=== PATIENT | male | born 1970 | race Caucasian/White ===

== ENCOUNTER 2016-06-09 08:52 | Emergency (ER) | payer OTHER ==
--- NOTE | 2016-06-09 10:00 | ED CLINICAL REPORT ---
Clinical Report - Physicians/Mid Levels [facility] [address] [place] [address] 06/09/2016 8:53 Patient: JERSON DAVIS Time Seen: 09:16; initial patient contact. Arrived- By private vehicle. Historian- patient. HISTORY OF PRESENT ILLNESS Chief Complaint: "FLU". This started yesterday and is still present (persistent). It was gradual in onset. The patient has had a cough, sinus drainage, nasal congestion, fever and chills. He has had muscle aches, a nasal discharge and diarrhea. No skin rash, difficulty breathing, chest discomfort or chest pain or nausea. No vomiting, loss of appetite or sputum production. The patient has had contact with a sick individual. Similar symptoms previously: None. Recent medical care: Not recently seen/assessed. REVIEW OF SYSTEMS No sinus pain, weakness or dizziness. All systems otherwise negative, except as recorded above. PAST HISTORY Leukocytosis. Cellulitis. Substance Abuse. Hypertension. Balanitis. Herpes Genitalis. SURGERIES: Cholecystectomy. SOCIAL HISTORY Former smoker, end date 2006. No alcohol use or drug use. ADDITIONAL NOTES The nursing notes have been reviewed with agreement regarding the chief complaint, PMH and patient medications and allergies. PHYSICAL EXAM Vital Signs: 06/09/2016 09:05 BP: 149/73. HR: 81. RR: 20. O2 saturation: 99%. Temp: 99.6 F. Pain level now: 5/10. Have been reviewed. Hypertensive. Heart rate normal. Respiratory rate normal. Temperature normal. Oxygen saturation normal. Appearance: Alert. No acute distress. Eyes: Eyes normal inspection. ENT: Ears normal. Nose normal. Mild generalized pharyngeal erythema. Neck: No lymphadenopathy. CVS: Normal heart rate and rhythm. Heart sounds normal. Respiratory: No respiratory distress. Breath sounds normal. Skin: Normal skin color. No rash. Neuro: Oriented X 3. LABS, X-RAYS, AND EKG Laboratory Tests: Rapid Influenza Screen: (RAVINDER: 06/09/2016 09:20) ( MsgRcvd 06/09/2016 09:49) Final results SPECIMEN DESCRIPTION: ... Test Result Flag Units (Reference) RAPID INFLUENZA SCREEN DATE: 06/09/16 INFLUENZA A: NEGATIVE SCREEN FOR INFLUENZA A INFLUENZA B: NEGATIVE SCREEN FOR INFLUENZA B . PROGRESS AND PROCEDURES Disposition: Discharged home in good condition. Condition: good. CLINICAL IMPRESSION Acute viral rhinitis. INSTRUCTIONS Alternate Tylenol (Acetaminophen) or Motrin (Ibuprofen) for fever. Take according to label instructions. Do not work today. Drink plenty of fluids. Your Current Medications: CONTINUE TAKING THE FOLLOWING MEDICATIONS: B/P med (carditon??)*. Lisinopril Oral : 5 mg daily. Follow-up: Follow up with your doctor in about two days if not better. Call for an appointment. Blood pressure screening was not performed during this visit because the patient has an active diagnosis of hypertension. The patient should follow up with a primary care provider for blood pressure management. (Electronically signed by Tyrese Franklin Dr. 06/09/2016 10:03)
--- NOTE | 2016-06-09 10:00 | ED CLINICAL REPORT ---
Clinical Report - Physicians/Mid Levels [facility] [address] [place] [address] 06/09/2016 8:53 Patient: JERSON DAVIS Time Seen: 09:16; initial patient contact. Arrived- By private vehicle. Historian- patient. HISTORY OF PRESENT ILLNESS Chief Complaint: "FLU". This started yesterday and is still present (persistent). It was gradual in onset. The patient has had a cough, sinus drainage, nasal congestion, fever and chills. He has had muscle aches, a nasal discharge and diarrhea. No skin rash, difficulty breathing, chest discomfort or chest pain or nausea. No vomiting, loss of appetite or sputum production. The patient has had contact with a sick individual. Similar symptoms previously: None. Recent medical care: Not recently seen/assessed. REVIEW OF SYSTEMS No sinus pain, weakness or dizziness. All systems otherwise negative, except as recorded above. PAST HISTORY Leukocytosis. Cellulitis. Substance Abuse. Hypertension. Balanitis. Herpes Genitalis. SURGERIES: Cholecystectomy. SOCIAL HISTORY Former smoker, end date 2006. No alcohol use or drug use. ADDITIONAL NOTES The nursing notes have been reviewed with agreement regarding the chief complaint, PMH and patient medications and allergies. PHYSICAL EXAM Vital Signs: 06/09/2016 09:05 BP: 149/73. HR: 81. RR: 20. O2 saturation: 99%. Temp: 99.6 F. Pain level now: 5/10. Have been reviewed. Hypertensive. Heart rate normal. Respiratory rate normal. Temperature normal. Oxygen saturation normal. Appearance: Alert. No acute distress. Eyes: Eyes normal inspection. ENT: Ears normal. Nose normal. Mild generalized pharyngeal erythema. Neck: No lymphadenopathy. CVS: Normal heart rate and rhythm. Heart sounds normal. Respiratory: No respiratory distress. Breath sounds normal. Skin: Normal skin color. No rash. Neuro: Oriented X 3. LABS, X-RAYS, AND EKG Laboratory Tests: Rapid Influenza Screen: (RAVINDER: 06/09/2016 09:20) ( MsgRcvd 06/09/2016 09:49) Final results SPECIMEN DESCRIPTION: ... Test Result Flag Units (Reference) RAPID INFLUENZA SCREEN DATE: 06/09/16 INFLUENZA A: NEGATIVE SCREEN FOR INFLUENZA A INFLUENZA B: NEGATIVE SCREEN FOR INFLUENZA B . PROGRESS AND PROCEDURES Disposition: Discharged home in good condition. Condition: good. CLINICAL IMPRESSION Acute viral rhinitis. INSTRUCTIONS Alternate Tylenol (Acetaminophen) or Motrin (Ibuprofen) for fever. Take according to label instructions. Do not work today. Drink plenty of fluids. Your Current Medications: CONTINUE TAKING THE FOLLOWING MEDICATIONS: B/P med (carditon??)*. Lisinopril Oral : 5 mg daily. Follow-up: Follow up with your doctor in about two days if not better. Call for an appointment. Blood pressure screening was not performed during this visit because the patient has an active diagnosis of hypertension. The patient should follow up with a primary care provider for blood pressure management. (Electronically signed by Tyrese Franklin Dr. 06/09/2016 10:03)
--- NOTE | 2016-06-09 10:01 | ED NURSING NOTES ---
Clinical Report - Nurses [facility] [place] [address] 06/09/2016 8:53 Patient: JERSON DAVIS TRIAGE Triage time 09:05. Acuity: LEVEL 4. Chief Complaint: "FLU", FEVER, COUGH and BODY ACHES and (productive yellow cough). 09:10 06/09/16. SEPSIS SCREEN: Sepsis Screen. Negative (no infection suspected/documented). MELVIN COMA SCORE: Melvin Coma Scale: 15- eyes open spontaneously (4); best verbal response- oriented x 4 (5); best motor response- obeys commands (6). --09:10 River Parker R.N. 09:05 06/09/16. BP: 149/73. HR: 81. RR: 20. O2 saturation: 99% on room air. Temp: 99.6 F (oral). Pain level now: 510. --09:10 River Parker R.N. Weight: 96.1 kg stated. Height/Length: 69 inches Per Patient. BMI: 31.3. --09:06 River Parker R.N. Medications Lisinopril Oral 5 mg, daily. --09:08 River Parker R.N. B/P med ([facility]??). --09:09 River Parker R.N. Allergies No Known Drug Allergy. --09:07 River Parker R.N. History Arrived by private vehicle. Historian: patient. This started yesterday. Treatment PCT: (Nyquil last night). SOCIAL HX: Former smoker, end date 2006. No alcohol use or drug use. No recent travel. He has had contact with a sick family member. ABUSE ASSESSMENT: No report of abuse. --09:10 River Parker R.N. PROBLEMS: Leukocytosis. Cellulitis. Substance Abuse. Hypertension. Balanitis. Herpes Genitalis. --09:08 River Parker R.N. ADDITIONAL SURGERIES: Cholecystectomy. --09:08 River Parker R.N. Interventions ID band on patient. To treatment room. --09:10 River Parker R.N. PHYSICAL ASSESSMENT 09:13 06/09/16. Ambulatory to room. GENERAL / NEURO / PSYCH: Alert. Oriented X 4. Appears in no acute distress. HEENT: Pupils equal, round and reactive to light. Mucous membranes are pink. RESPIRATORY: Respirations not labored. Chest nontender. Breath sounds within normal limits. CVS: Capillary refill less than 2 seconds. Pulses within normal limits. GI / : The patient has had nausea. Abdomen soft and nontender and normal bowel sounds. SKIN: Skin is warm and dry. Normal skin turgor. --09:13 River Parker R.N. NURSING PROGRESS NOTES 09:14 06/09/16. Patient gowned. Head of bed elevated. Reassurance given. Two patient identifiers checked. Call light placed in reach. Bed placed in lowest position. Brakes of bed on. Patient ready for evaluation- chart flagged. --09:14 River Parker R.N. DISPOSITION / DISCHARGE 10:16 06/09/16. Departure time: 1010. Condition at departure: unchanged and stable. No learning barriers present. Discharge instructions provided and reviewed with the patient. Treatments reviewed. Patient verbalized understanding. Written instructions provided in Czech. The patient was discharged by the physician. He was discharged home. He left the Emergency Department ambulatory and via private vehicle. Patient driving. --10:17 River Parker R.N. 09:45 06/09/16. BP: 146/62. HR: 77. RR: 20. O2 saturation: 99% on room air. Temp: 99.6 F (oral). Pain level now: 08/29. --10:17 River Parker R.N. Locked/Released at 06/09/2016 10:17 by River Parker R.N.
--- NOTE | 2016-06-09 10:01 | ED ORDER SUMMARY ---
..... Patient: JERSON DAVIS OrderSheet [facility] VisitID: [id number] [address] [place] [address] 46y, M Registration Date/Time: 06/09/2016 ORDER SHEET Weight: 96.1 kg (stated) Allergies: No Known Drug Allergy GENERAL ORDERS: Rapid Influenza Screen (Nasal Pharyngeal) (...) Urgent (09:26 06/09/2016 Santana Bean) (9:26 Laureen Rachel) MEDICATION ORDERS: IV FLUIDS: ORDER SHEET NOTES: [Electronically signed by Tyrese Franklin Dr. (10:03 06/09/2016)] [Electronically signed by River Parker R.N. (10:06/09/2016)] [Electronically locked/signed by River Parker R.N. (10:06/09/2016)]
--- NOTE | 2016-06-09 10:01 | ED ORDER SUMMARY ---
..... Patient: JERSON DAVIS OrderSheet [facility] VisitID: [id number] [address] [place] [address] 46y, M Registration Date/Time: 06/09/2016 ORDER SHEET Weight: 96.1 kg (stated) Allergies: No Known Drug Allergy GENERAL ORDERS: Rapid Influenza Screen (Nasal Pharyngeal) (...) Urgent (09:26 06/09/2016 Santana Bean) (9:26 Laureen Rachel) MEDICATION ORDERS: IV FLUIDS: ORDER SHEET NOTES: [Electronically signed by Tyrese Franklin Dr. (10:03 06/09/2016)] [Electronically signed by River Parker R.N. (10:06/09/2016)] [Electronically locked/signed by River Parker R.N. (10:06/09/2016)]
--- NOTE | 2016-06-09 10:01 | ED NURSING NOTES ---
Clinical Report - Nurses [facility] [place] [address] 06/09/2016 8:53 Patient: JERSON DAVIS TRIAGE Triage time 09:05. Acuity: LEVEL 4. Chief Complaint: "FLU", FEVER, COUGH and BODY ACHES and (productive yellow cough). 09:10 06/09/16. SEPSIS SCREEN: Sepsis Screen. Negative (no infection suspected/documented). MELVIN COMA SCORE: Melvin Coma Scale: 15- eyes open spontaneously (4); best verbal response- oriented x 4 (5); best motor response- obeys commands (6). --09:10 River Parker R.N. 09:05 06/09/16. BP: 149/73. HR: 81. RR: 20. O2 saturation: 99% on room air. Temp: 99.6 F (oral). Pain level now: 510. --09:10 River Parker R.N. Weight: 96.1 kg stated. Height/Length: 69 inches Per Patient. BMI: 31.3. --09:06 River Parker R.N. Medications Lisinopril Oral 5 mg, daily. --09:08 River Parker R.N. B/P med ([facility]??). --09:09 River Parker R.N. Allergies No Known Drug Allergy. --09:07 River Parker R.N. History Arrived by private vehicle. Historian: patient. This started yesterday. 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 SOCIAL HX: Former smoker, end date 2006. No alcohol use or drug use. No recent travel. He has had contact with a sick family member. ABUSE ASSESSMENT: No report of abuse. --09:10 River Parker R.N. PROBLEMS: Leukocytosis. Cellulitis. Substance Abuse. Hypertension. Balanitis. Herpes Genitalis. --09:08 River Parker R.N. ADDITIONAL SURGERIES: Cholecystectomy. --09:08 River Parker R.N. Interventions ID band on patient. To treatment room. --09:10 River Parker R.N. PHYSICAL ASSESSMENT 09:13 06/09/16. Ambulatory to room. GENERAL / NEURO / PSYCH: Alert. Oriented X 4. Appears in no acute distress. HEENT: Pupils equal, round and reactive to light. Mucous membranes are pink. RESPIRATORY: Respirations not labored. Chest nontender. Breath sounds within normal limits. CVS: Capillary refill less than 2 seconds. Pulses within normal limits. GI / : The patient has had nausea. Abdomen soft and nontender and normal bowel sounds. SKIN: Skin is warm and dry. Normal skin turgor. --09:13 River Parker R.N. NURSING PROGRESS NOTES 09:14 06/09/16. Patient gowned. Head of bed elevated. Reassurance given. Two patient identifiers checked. Call light placed in reach. Bed placed in lowest position. Brakes of bed on. Patient ready for evaluation- chart flagged. --09:14 River Parker R.N. DISPOSITION / DISCHARGE 10:16 06/09/16. Departure time: 1010. Condition at departure: unchanged and stable. No learning barriers present. Discharge instructions provided and reviewed with the patient. Treatments reviewed. Patient verbalized understanding. Written instructions provided in Zambian. The patient was discharged by the physician. He was discharged home. He left the Emergency Department ambulatory and via private vehicle. Patient driving. --10:17 River Parker R.N. 09:45 06/09/16. BP: 146/62. HR: 77. RR: 20. O2 saturation: 99% on room air. Temp: 99.6 F (oral). Pain level now: 08/29. --10:17 River Parker R.N. Locked/Released at 06/09/2016 10:17 by River Parker R.N.
--- NOTE | 2016-06-09 10:18 | ED DISCHARGE INSTRUCTIONS ---
Patient: JERSON DAVIS General Instructions [facility] VisitID: [id number] [place] [address] 46y, M Registration Date/Time: 06/09/2016 Acute viral rhinitis. INSTRUCTIONS Alternate Tylenol (Acetaminophen) or Motrin (Ibuprofen) for fever. Take according to label instructions. Do not work today. Drink plenty of fluids. Your Current Medications: CONTINUE TAKING THE FOLLOWING MEDICATIONS: B/P med (carditon??)*. Lisinopril Oral : 5 mg daily. Follow-up: Follow up with your doctor in about two days if not better. Call for an appointment. Blood pressure screening was not performed during this visit because the patient has an active diagnosis of hypertension. The patient should follow up with a primary care provider for blood pressure management. ADDITIONAL INFORMATION Viral Respiratory Illness [Adult] You have an Upper Respiratory Illness (URI) caused by a virus. This illness is contagious during the first few days. It is spread through the air by coughing and sneezing or by direct contact (touching the sick person and then touching your own eyes, nose or mouth). Most viral illnesses go away within 7-10 days with rest and simple home remedies. Sometimes, the illness may last for several weeks. Antibiotics will not kill a virus and are generally not prescribed for this condition. Home Care: 1) If symptoms are severe, rest at home for the first 2-3 days. When you resume activity, don't let yourself get too tired. 2) Avoid being exposed to cigarette smoke (yours or others). 3) Tylenol (acetaminophen) or ibuprofen (Advil, Motrin) will help fever, muscle aching and headache. (Persons under 18 with fever should not take aspirin since this may cause liver damage.) 4) Your appetite may be poor, so a light diet is fine. Avoid dehydration by drinking 6-8 glasses of fluids per day (water, soft drinks, juices, tea, soup). Extra fluids will help loosen secretions in the nose and lungs. 5) [id number] cold medicines will not shorten the length of time youre sick, but they may be helpful for the following symptoms: cough (Robitussin DM); sore throat (Chloraseptic lozenges or spray); nasal and sinus congestion (Actifed, Sudafed, Chlortrimeton). Follow Up with your doctor or as advised if you dont improve over the next week. Get Prompt Medical Attention if any of the following occur: -- Cough with lots of colored sputum (mucus) or blood in your sputum -- Chest pain, shortness of breath, wheezing or have trouble breathing -- Severe headache; face, neck or ear pain -- Fever over 100.4 F (38.0 C) for more than three days -- You cant swallow due to throat pain Fever Control (Adult) A fever is a natural reaction of the body to an illness. In most cases, the temperature itself is not harmful. It actually helps the body fight infections. A fever does not need to be treated unless you feel very uncomfortable. Home Care If you feel warm, check your temperature. If you feel very uncomfortable and your temperature is at or higher than 100.4F (38C) oral, you may take acetaminophen (Tylenol) every 4 to 6 hours. If you cant take or keep down oral medicine, ask your pharmacist for Tylenol suppositories, which you can get without a prescription. If the fever does not respond to acetaminophen within 1 hour, take ibuprofen (Advil or Motrin). If this works, keep taking the ibuprofen every 6 to 8 hours. Note: If you have chronic liver or kidney disease or ever had a stomach ulcer or GI bleeding, talk with your doctor before using these medications. If either medication alone does not keep the fever down, you may alternate the two medicines every 3 to 4 hours, only if your healthcare provider has instructed you to do so. For example, take Motrin then wait 3 hours, take Tylenol then wait 3 hours, take Motrin, and so on. Follow your healthcare providers instructions exactly. Clothing: Keep clothing light because excess body heat is lost through the skin. The fever will go up if you wear extra layers or wrap in blankets. Fluids: Fever causes the body to lose water through evaporation. Drink plenty of fluids such as water, juice, clear sodas, venita chava, or lemonade. Do not use aspirin in anyone under 18 years of age who is ill with a fever. It can cause severe liver damage. Follow Up with your doctor or as advised by our staff if you do not get better after 48 hours. Get Prompt Medical Attention if any of the following occur: Fever does not get better after taking fever medication Fast or difficult breathing Earache, sinus pain, stiff or painful neck, headache, repeated diarrhea or vomiting You feel unusually irritable, drowsy, or confused A rash appears You feel weak or dizzy, or that you might faint You have been given the following additional information: Uri, Viral, No Abx (Adult) Fever Control (Adult) Do not work today. (Electronically signed by Tyrese Franklin Dr. 06/09/2016 10:03)
--- NOTE | 2016-06-09 10:18 | ED MAR SUMMARY ---
..... Medication Administration Record [facility] [address], [place] [id number] Patient: JERSON DAVIS Visit ID: [id number] 46y, M Weight: 96.1 kg Height/Length: 69 in BMI: 31.3 ALLERGIES: No Known Drug Allergy
--- NOTE | 2016-06-09 10:18 | ED MED RECONCILIATION SUMMARY ---
Patient: JERSON DAVIS Medication Reconciliation Report [facility] VisitID: [id number] [address] [place] [address] 46y, M Registration Date/Time: 06/09/2016 Weight: 96.1 kg Height/Length: 69 in. BMI: 31.3 ALLERGIES: No Known Drug Allergy The patient's Home Medications are listed below: CONTINUE TAKING THE FOLLOWING MEDICATIONS: B/P med (carditon??) Lisinopril Oral 5 mg, daily The source(s) of the original Home Medication information: Not obtained. The following Medications were given to the patient in the Emergency Department: None. The following Medications were prescribed to the patient: None.
--- NOTE | 2016-06-09 10:18 | ED MED RECONCILIATION SUMMARY ---
Patient: JERSON DAVIS Medication Reconciliation Report [facility] VisitID: [id number] [address] [place] [address] 46y, M Registration Date/Time: 06/09/2016 Weight: 96.1 kg Height/Length: 69 in. BMI: 31.3 ALLERGIES: No Known Drug Allergy The patient's Home Medications are listed below: CONTINUE TAKING THE FOLLOWING MEDICATIONS: B/P med (carditon??) Lisinopril Oral 5 mg, daily The source(s) of the original Home Medication information: Not obtained. The following Medications were given to the patient in the Emergency Department: None. The following Medications were prescribed to the patient: None.
--- NOTE | 2016-06-09 10:18 | ED MAR SUMMARY ---
..... Medication Administration Record [facility] [address] [place], [place] [id number] Patient: JERSON DAVIS Visit ID: [id number] 46y, M Weight: 96.1 kg Height/Length: 69 in BMI: 31.3 ALLERGIES: No Known Drug Allergy
== END 2016-06-09 10:10 | disposition home or self-care (01) ==
LOC: ED SRH 08:52
DX: J00 Acute nasopharyngitis [common cold] (principal); I10 Essential (primary) hypertension; Z79.899 Other long term (current) drug therapy
CPT/HCPCS: 91400